=== PATIENT | male | born 1950 | race Caucasian/White ===

== ENCOUNTER 2019-11-08 11:30 | Day surgery (SDC) | payer MEDICARE ==
[~2019-11-08] VITALS: Ht 175.3 cm; Wt 74.4 kg
[~2019-11-08 11:30] MED LIST: BUPIVACAINE/PF 0.5% ONE; EPINEPHRINE 1 MG/ML, 1ML ONE
[2019-11-08] MEDS ORDERED: OMEP-110 PO (12:22)
[2019-11-08] MEDS ORDERED: LISI-167 PO (12:22)
[2019-11-08] MEDS ORDERED: MIDAZOLAM 1 MG/ML, 2ML ONE ×2 (12:27→14:34)
[2019-11-08] MEDS ORDERED: FENTANYL PF 250 MCG/5ML ONE ×2 (12:28→14:34)
[2019-11-08 12:33] VITALS: BP 156/65
[2019-11-08] MEDS ORDERED: PROPOFOL 10 MG/ML, 20ML ONE (12:49)
[2019-11-08] MEDS ORDERED: DEXAMETHASONE 4 MG/ML, 1ML ONE ×2 (12:56→12:57)
[2019-11-08] MEDS ORDERED: CEFAZOLIN 1,000 MG ONE (12:57)
[2019-11-08 13:06] LABS: ALANINE AMINOTRANSFERASE 23 U/L (12-78); ALBUMIN 3.8 g/dL (3.4-5.0); ANION GAP 9 mmol/L (5-15); CALCIUM 8.8 mg/dL (8.5-10.1); CHLORIDE 104 mmol/L (98-107); CREATININE 0.91 mg/dL (0.7-1.3)
[2019-11-08 13:08] LABS: ALKALINE PHOSPHATASE 49 U/L (45-117); BILIRUBIN,TOTAL 1.9 mg/dL (0.2-1.0); TOTAL PROTEIN 7.5 g/dL (6.4-8.2)
[2019-11-08] MEDS ORDERED: ONDANSETRON 2MG/ML, 2ML ONE (13:08)
[2019-11-08] MEDS ORDERED: KETOROLAC 30 MG/1 ML ONE (13:14)
[2019-11-08] MEDS ORDERED: HYDROmorphone 1 MG/ML, 1ML INJ ONE (13:39)
[2019-11-08] MEDS ORDERED: OXYcodone 5 MG/5 ML ORAL.SOL UDC ONE (13:39)
[2019-11-08] MEDS ORDERED: ACETAMINOPHEN 650 MG/20.3 ML UDC ONE (13:43)
[2019-11-08] MEDS ORDERED: ACETAMINOPHEN 325 MG TABLET ONE (13:44)
[2019-11-08] MEDS: HYDROmorphone 2 MG/ML, 1ML IVPush PRN ×4 (13:45→14:25)
[2019-11-08] MEDS ORDERED: DIAZEPAM 5 MG/ML, 2ML ONE (13:57)
[2019-11-08] MEDS ORDERED: OXYcodone 5 MG/5 ML ORAL.SOL UDC PO PRN (14:00)
[2019-11-08] MEDS ORDERED: ONDANSETRON 2MG/ML, 2ML IV PRN (14:00)
[2019-11-08] MEDS ORDERED: ACETAMINOPHEN 325 MG TABLET PO PRN (14:00)
[2019-11-08] MEDS ORDERED: hydrALAzine 20 MG/ML, 1ML IV PRN (14:00)
[2019-11-08] MEDS ORDERED: LABETALOL 5MG/ML, 20ML IV PRN (14:00)
[2019-11-08] MEDS ORDERED: FENTANYL PF 100 MCG/2ML IV PRN (14:00)
[2019-11-08] MEDS ORDERED: hydrALAzine 20 MG/ML, 1ML ONE (14:24)
[2019-11-08] MEDS ORDERED: DIAZEPAM 5 MG/ML, 2ML IVPush PRN (14:30)
[2019-11-08] MEDS ORDERED: MEPERIDINE/PF 25MG/ML,1ML ONE (14:34)
[2019-11-08] MEDS: MEPERIDINE/PF 25MG/ML,1ML IVPush PRN ×2 (14:35→14:45)
== END 2019-11-08 16:40 | disposition home or self-care (01) ==
LOC: OUT 11:30
PROVIDERS: ATTEND Orthopaedic Surgery
DX: S76.191A Other specified injury of right quadriceps muscle, fascia and tendon, initial encounter (principal); W19.XXXA Unspecified fall, initial encounter; Y93.89 Activity, other specified; Y92.89 Other specified places as the place of occurrence of the external cause; Y99.8 Other external cause status
CPT/HCPCS: 27385; 36415; 64447; 80053; 93005; J0360; J0690; J1100; J1170; J1885; J2175; J2250; J2405; J2704; J3010; J3360; J0171